=== PATIENT | male | born 1960 | race Caucasian/White ===

== ENCOUNTER 2017-07-28 10:37 | Day surgery (SDC) | payer BC ==
[2017-07-27 08:49] LABS: ASPARTATE AMINO TRANSFERASE 18 U/L (15-37); BLOOD UREA NITROGEN 15 mg/dL (7-18)
[~2017-07-28] VITALS: Ht 177.8 cm; Wt 143.0 kg
[~2017-07-28 10:37] MED LIST: ATOR40TA78 PO; LISI-170 PO; MULT1TAB60 PO; OXYC1TAB9 PO; SITA1TAB5 PO
[2017-07-28] MEDS ORDERED: LACTATED RINGERS 1,000 ML IV SCH (11:03)
[2017-07-28] MEDS ORDERED: LIDOCAINE 1%, 2ML ONE (11:04)
[2017-07-28 11:05] VITALS: BP 145/84
[2017-07-28] MEDS ORDERED: ROPIvacaine/PF 0.5%, 30 ML ONE (11:43)
[2017-07-28] MEDS ORDERED: LIDOCAINE/PF 0.5% ,50ML ONE (11:49)
[2017-07-28] MEDS ORDERED: EPINEPHRINE 1 MG/ML, 1ML ONE (11:49)
[2017-07-28] MEDS ORDERED: FENTANYL PF 100 MCG/2ML ONE ×4 (12:21→14:41)
[2017-07-28] MEDS ORDERED: MIDAZOLAM 1 MG/ML, 2ML ONE ×2 (12:21→13:03)
[2017-07-28] MEDS ORDERED: PROPOFOL 10 MG/ML, 20ML ONE ×2 (12:22→13:03)
[2017-07-28] MEDS ORDERED: SODIUM CHLORIDE 0.9% PF 10ML ONE (12:23)
[2017-07-28] MEDS ORDERED: CEFAZOLIN 1,000 MG ONE ×5 (12:23→13:10)
[2017-07-28] MEDS ORDERED: PROMETHAZINE 25 MG/ML, 1ML IV PRN (13:00)
[2017-07-28] MEDS ORDERED: OXYcodone 5 MG/5 ML ORAL.SOL UDC PO PRN (13:00)
[2017-07-28] MEDS ORDERED: ONDANSETRON 2MG/ML, 2ML IVPush PRN (13:00)
[2017-07-28] MEDS ORDERED: MEPERIDINE/PF 25MG/0.5ML IVPush PRN (13:00)
[2017-07-28] MEDS ORDERED: ACETAMINOPHEN 325 MG TABLET PO PRN (13:00)
[2017-07-28] MEDS ORDERED: FENTANYL PF 250 MCG/5ML ONE (13:03)
[2017-07-28] MEDS ORDERED: LIDOCAINE 1%-EPI 1:100K, 30ML INFIL ONE (13:25)
[2017-07-28] MEDS ORDERED: ROPIvacaine/PF 0.5%, 30 ML INFIL ONE (13:27)
[2017-07-28] MEDS ORDERED: OXYcodone 5 MG/5 ML ORAL.SOL UDC ONE (14:02)
[2017-07-28] MEDS ORDERED: ACETAMINOPHEN 650 MG/20.3 ML UDC ONE (14:02)
[2017-07-28] MEDS: FENTANYL PF 100 MCG/2ML IV PRN ×4 (14:04→15:01)
[2017-07-28] MEDS ORDERED: HYDROmorphone 1 MG/ML, 1ML ONE ×2 (14:14→14:34)
[2017-07-28] MEDS: HYDROmorphone 1 MG/ML, 1ML IV PRN ×5 (14:16→14:54)
[2017-07-28] MEDS ORDERED: hydrALAzine 20 MG/ML, 1ML ONE (14:34)
[2017-07-28] MEDS: hydrALAzine 20 MG/ML, 1ML IV PRN ×2 (14:35→15:04)
[2017-07-28] MEDS ORDERED: LABETALOL 5MG/ML, 20ML ONE (14:51)
[2017-07-28] MEDS: LABETALOL 5MG/ML, 20ML IV PRN ×3 (14:53→15:13)
== END 2017-07-28 16:40 ==
LOC: OUT 10:37
PROVIDERS: ATTEND Orthopaedic Surgery
DX: S83.242A Other tear of medial meniscus, current injury, left knee, initial encounter (principal); S83.282A Other tear of lateral meniscus, current injury, left knee, initial encounter; M65.862 Other synovitis and tenosynovitis, left lower leg; M94.262 Chondromalacia, left knee; G47.33 Obstructive sleep apnea (adult) (pediatric); I10 Essential (primary) hypertension; E11.9 Type 2 diabetes mellitus without complications; Y93.89 Activity, other specified; X58.XXXA Exposure to other specified factors, initial encounter; Y92.89 Other specified places as the place of occurrence of the external cause; Y99.8 Other external cause status
CPT/HCPCS: 29881; 36415; 80053; 82962; 93005; J0171; J0360; J0690; J1170; J2001; J2250; J2704; J2795; J3010; J3490; J7120